=== PATIENT | female | born 1965 | race African-American/Black ===

== ENCOUNTER 2017-02-15 18:18 | Emergency (ER) | payer OTHER ==
[~2017-02-15] VITALS: Ht 167.6 cm; Wt 104.5 kg
[~2017-02-15 18:18] MED LIST: CARV25TA32 PO; FURO40TA5 PO; LOSA50TA37 PO; SPIR25 PO
[2017-02-15] MEDS ORDERED: AMLO2.5T PO (18:29)
[2017-02-15 19:29] VITALS: BP 128/83
== END 2017-02-15 19:50 | disposition home or self-care (01) ==
LOC: EMS 18:18
DX: K40.90 Unilateral inguinal hernia, without obstruction or gangrene, not specified as recurrent (principal); I11.0 Hypertensive heart disease with heart failure; E78.00 Pure hypercholesterolemia, unspecified; J45.909 Unspecified asthma, uncomplicated; F15.90 Other stimulant use, unspecified, uncomplicated
CPT/HCPCS: 99281

== ENCOUNTER 2021-07-07 18:02 | Emergency (ER) | payer OTHER ==
[~2021-07-07] VITALS: Ht 162.6 cm; Wt 77.3 kg
[~2021-07-07 18:02] MED LIST changes: +AMLO2.5T96 PO; -LOSA50TA37 PO; +LOSA50TA65 PO; +SPIR-37 PO; -SPIR25 PO
[2021-07-07 18:08] VITALS: BP 109/69
[2021-07-07] MEDS ORDERED: IBUPROFEN 600 MG TABLET PO ONE (18:45)
[2021-07-07] MEDS ORDERED: PERTUSS(ACELL),DIPH,TET VAC/PF 0.5 ML SYRINGE IM. ONE (18:45)
== END 2021-07-07 19:45 | disposition home or self-care (01) ==
LOC: EMS 18:03
DX: S61.213A Laceration without foreign body of left middle finger without damage to nail, initial encounter (principal); J45.909 Unspecified asthma, uncomplicated; E78.00 Pure hypercholesterolemia, unspecified; I10 Essential (primary) hypertension; Z90.89 Acquired absence of other organs; W45.8XXA Other foreign body or object entering through skin, initial encounter; Y93.89 Activity, other specified; Y92.89 Other specified places as the place of occurrence of the external cause; Y99.0 Civilian activity done for income or pay
CPT/HCPCS: 12001; 90471; 90715; 99283